=== PATIENT | male | born 1940 | race Caucasian/White ===

== ENCOUNTER 2018-10-15 13:02 | Inpatient (IN) ==
[2018-10-15] MEDS ORDERED: PANTOPRAZOLE 40 MG VIAL IV STA (14:00)
[2018-10-15 14:20] LABS: Basophils # 0.1 10*3/uL (0.0-0.2); Basophils % 0.4 % (0.0-0.8); Eosinophils # 0.2 10*3/uL (0.0-0.87); Eosinophils % 1.9 % (0.00-10.9); Hematocrit 37.2 VOL% (42.0-52.0); Hemoglobin 12.3 GM/DL (14.0-18.0); Immature Granulocytes % 0.5 %; Immature Granulocytes Absolute 0.06 #; Lymphocytes # 1.6 10*3/uL (1.4-4.0); Lymphocytes % 13.3 % (21.2-54.2); Mean Corpuscular HGB Conc 33.1 GM/DL (32-36); Mean Corpuscular Hemoglobin 32 PG (27-34); Mean Corpuscular Volume 97.4 FL (87-102); Mean Platelet Volume 9.4 FL (9.6-12.0); Monocytes # 0.9 10*3/uL (0.11-0.8); Monocytes % 7.4 % (1.7-12.7); Neutrophils # 9.2 10*3/uL (1.4-7.4); Neutrophils % 76.5 % (38.7-73.9); Platelet Count 315 T/CUMM (130-400); Red Blood Count 3.82 MC/CUMM (3.8-5.5); Red Cell Distribution Width 12.9 % (9.3-17.3)
[2018-10-15 14:28] LABS: PT Patient Result 10.4 SECS
[2018-10-15 14:46] LABS: Alanine Aminotransferase 20 U/L (16-61); Albumin 3.4 G/DL (3.4-5.0); Alkaline Phosphatase 95 U/L (45-117); Aspartate Amino Transferase 18 U/L (0-37); Blood Urea Nitrogen 17 MG/DL (7-18); Calcium 8.5 MG/DL (8.5-10.1); Glucose 118 MG/DL (74-106); Osmolality,Calculated 277.7 MOS/KG (273-304); Potassium 4.5 MMOL/L (3.5-5.1); Sodium 138 MMOL/L (136-145); Total Protein 7.4 G/DL (6.4-8.3); Troponin I < 0.015 NG/ML (0.00-0.045)
[2018-10-15] MEDS ORDERED: ACETAMINOPHEN 325 MG TABLET PO PRN (16:01)
[2018-10-15] MEDS ORDERED: ONDANSETRON 4 MG/2 ML VIAL IV PRN (16:01)
[2018-10-15 17:08] LABS: Hematocrit 36.4 VOL% (42.0-52.0); Hemoglobin 11.7 GM/DL (14.0-18.0)
[2018-10-15] MEDS: PANTOPRAZOLE INJ 80 MG in SODIUM CHLORIDE 0.9% 100 ML IV ONE ×2 (17:23→17:32)
[2018-10-15] MEDS: SODIUM CHLORIDE 0.9% 1,000 ML IV SCH (17:32)
[2018-10-15] MEDS ORDERED: INFLUENZA VIRUS VACCINE 0.5 ML SYRINGE IM ONE (17:46)
[2018-10-15] MEDS: PANTOPRAZOLE INJ 200 MG in SODIUM CHLORIDE 0.9% 250 ML IV SCH (18:24)
[2018-10-15] MEDS: TICAGRELOR 90 MG TABLET PO SCH (21:26)
[2018-10-15] MEDS: ASPIRIN EC 81 MG TABLET PO SCH (21:26)
[2018-10-15 22:39] LABS: Hematocrit 31.8 VOL% (42.0-52.0); Hemoglobin 10.4 GM/DL (14.0-18.0)
[2018-10-16] MEDS: SODIUM CHLORIDE 0.9% 1,000 ML IV SCH ×3 (01:00→18:32)
[2018-10-16 05:09] LABS: Hematocrit 29.9 VOL% (42.0-52.0); Hemoglobin 9.6 GM/DL (14.0-18.0)
[2018-10-16 05:35] LABS: Calcium 7.6 MG/DL (8.5-10.1); Osmolality,Calculated 282.1 MOS/KG (273-304); Potassium 3.9 MMOL/L (3.5-5.1)
[2018-10-16] MEDS: TICAGRELOR 90 MG TABLET PO SCH ×2 (09:32→21:06)
[2018-10-16 09:56] LABS: Hemoglobin 9.8 GM/DL (14.0-18.0)
[2018-10-16] MEDS ORDERED: SODIUM CHLORIDE 0.9% 1,000 ML IV ONE (13:37)
[2018-10-16 16:53] LABS: Hemoglobin 7.4 GM/DL (14.0-18.0)
[2018-10-16] MEDS ORDERED: SODIUM CHLORIDE 0.9% 1,000 ML IV PRN (17:01)
[2018-10-16] MEDS: PANTOPRAZOLE INJ 200 MG in SODIUM CHLORIDE 0.9% 250 ML IV SCH (17:53)
[2018-10-16] MEDS: ASPIRIN EC 81 MG TABLET PO SCH (21:06)
[2018-10-16] MEDS: METOPROLOL SUCCINATE XL 50 MG TABLET PO SCH (21:06)
[2018-10-17 04:50] LABS: Hematocrit 27.3 VOL% (42.0-52.0)
[2018-10-17 05:02] LABS: Hemoglobin 9.1 GM/DL (14.0-18.0)
[2018-10-17 05:09] LABS: Calcium 7.4 MG/DL (8.5-10.1); Osmolality,Calculated 279.3 MOS/KG (273-304); Potassium 3.9 MMOL/L (3.5-5.1)
[2018-10-17] MEDS: SODIUM CHLORIDE 0.9% 1,000 ML IV SCH ×2 (06:18→09:03)
[2018-10-17] MEDS ORDERED: MAGNESIUM SULF RIDER 2 GM in PREMIX 1 EACH IV PRN (07:21)
[2018-10-17] MEDS: TICAGRELOR 90 MG TABLET PO SCH ×2 (08:42→21:23)
[2018-10-17] MEDS: CHOLECALCIFEROL 1,000 UNIT TABLET PO SCH (08:42)
[2018-10-17 13:10] LABS: Hematocrit 25.3 VOL% (42.0-52.0); Hemoglobin 8.3 GM/DL (14.0-18.0)
[2018-10-17] MEDS ORDERED: SODIUM CHLORIDE 0.9% 1,000 ML IV PRN (13:40)
[2018-10-17] MEDS: POTASSIUM CHLORIDE INJ 10 MEQ in SODIUM CHLORIDE 0.9% 1,000 ML IV SCH (15:48)
[2018-10-17 19:24] LABS: Hematocrit 29.2 VOL% (42.0-52.0); Hemoglobin 9.4 GM/DL (14.0-18.0)
[2018-10-17] MEDS: PANTOPRAZOLE INJ 200 MG in SODIUM CHLORIDE 0.9% 250 ML IV SCH (19:36)
[2018-10-17] MEDS: METOPROLOL SUCCINATE XL 50 MG TABLET PO SCH (21:23)
[2018-10-17] MEDS: ASPIRIN EC 81 MG TABLET PO SCH (21:23)
[2018-10-17] MEDS: ATORVASTATIN 40 MG TABLET PO SCH (21:23)
[2018-10-18 05:02] LABS: Calcium 7.2 MG/DL (8.5-10.1); Potassium 3.3 MMOL/L (3.5-5.1)
[2018-10-18 06:04] LABS: Basophils # 0.1 10*3/uL (0.0-0.2); Basophils % 0.4 % (0.0-0.8); Eosinophils # 0.4 10*3/uL (0.0-0.87); Eosinophils % 3.2 % (0.00-10.9); Hematocrit 25.9 VOL% (42.0-52.0); Hemoglobin 8.7 GM/DL (14.0-18.0); Immature Granulocytes % 0.6 %; Immature Granulocytes Absolute 0.07 #; Lymphocytes # 1.7 10*3/uL (1.4-4.0); Lymphocytes % 15.4 % (21.2-54.2); Mean Corpuscular HGB Conc 33.6 GM/DL (32-36); Mean Corpuscular Hemoglobin 32 PG (27-34); Mean Corpuscular Volume 94.5 FL (87-102); Mean Platelet Volume 10.1 FL (9.6-12.0); Monocytes # 1.3 10*3/uL (0.11-0.8); Monocytes % 11.6 % (1.7-12.7); Neutrophils # 7.7 10*3/uL (1.4-7.4); Neutrophils % 68.8 % (38.7-73.9); Red Cell Distribution Width 14.2 % (9.3-17.3); White Blood Count 11.2 T/CUMM (4-12)
[2018-10-18 06:08] LABS: Red Blood Count 2.74 MC/CUMM (3.8-5.5)
[2018-10-18 06:09] LABS: Platelet Count 152 T/CUMM (130-400)
[2018-10-18] MEDS: POTASSIUM CHLORIDE INJ 10 MEQ in SODIUM CHLORIDE 0.9% 1,000 ML IV SCH (07:28)
[2018-10-18] MEDS: LOSARTAN 25 MG TABLET PO SCH (10:59)
[2018-10-18] MEDS: CHOLECALCIFEROL 1,000 UNIT TABLET PO SCH (10:59)
[2018-10-18] MEDS: TICAGRELOR 90 MG TABLET PO SCH ×2 (10:59→22:00)
[2018-10-18] MEDS: POTASSIUM CHLORIDE 20 MEQ TABLET PO SCH ×2 (10:59→13:16)
[2018-10-18] MEDS: CALCIUM (CARBONATE) 500 MG TABLET PO SCH ×3 (10:59→17:38)
[2018-10-18] MEDS ORDERED: PANTOPRAZOLE 40 MG VIAL IV SCH (21:00)
[2018-10-18] MEDS: METOPROLOL SUCCINATE XL 50 MG TABLET PO SCH (22:00)
[2018-10-18] MEDS: ATORVASTATIN 40 MG TABLET PO SCH (22:00)
[2018-10-18] MEDS: ASPIRIN EC 81 MG TABLET PO SCH (22:01)
[2018-10-18 22:19] LABS: Hematocrit 27.9 VOL% (42.0-52.0); Hemoglobin 9.2 GM/DL (14.0-18.0)
[2018-10-19 05:10] LABS: Basophils % 0.3 % (0.0-0.8); Eosinophils # 0.3 10*3/uL (0.0-0.87); Eosinophils % 2.9 % (0.00-10.9); Hematocrit 24.1 VOL% (42.0-52.0); Hemoglobin 7.8 GM/DL (14.0-18.0); Immature Granulocytes % 0.6 %; Immature Granulocytes Absolute 0.06 #; Lymphocytes # 1.1 10*3/uL (1.4-4.0); Lymphocytes % 10.1 % (21.2-54.2); Mean Corpuscular HGB Conc 32.4 GM/DL (32-36); Mean Corpuscular Hemoglobin 31 PG (27-34); Mean Corpuscular Volume 96.4 FL (87-102); Mean Platelet Volume 10.1 FL (9.6-12.0); Monocytes # 1.2 10*3/uL (0.11-0.8); Monocytes % 11.2 % (1.7-12.7); Neutrophils # 7.8 10*3/uL (1.4-7.4); Neutrophils % 74.9 % (38.7-73.9); Platelet Count 177 T/CUMM (130-400); Red Cell Distribution Width 14.1 % (9.3-17.3); White Blood Count 10.4 T/CUMM (4-12)
[2018-10-19] MEDS ORDERED: SODIUM CHLORIDE 0.9% 1,000 ML IV PRN (05:22)
[2018-10-19 05:26] LABS: Calcium 7.8 MG/DL (8.5-10.1); Osmolality,Calculated 278.3 MOS/KG (273-304); Potassium 3.7 MMOL/L (3.5-5.1)
[2018-10-19] MEDS: CHOLECALCIFEROL 1,000 UNIT TABLET PO SCH (08:58)
[2018-10-19] MEDS: PANTOPRAZOLE 40 MG VIAL IV SCH ×2 (08:58→21:47)
[2018-10-19] MEDS: TICAGRELOR 90 MG TABLET PO SCH (08:58)
[2018-10-19] MEDS: LOSARTAN 25 MG TABLET PO SCH (08:58)
[2018-10-19] MEDS ORDERED: PANTOPRAZOLE 40 MG VIAL IV SCH (09:00)
[2018-10-19] MEDS ORDERED: PANTOPRAZOLE 40 MG TABLET PO SCH (09:00)
[2018-10-19] MEDS ORDERED: CLOPIDOGREL 300 MG TABLET PO ONE (12:00)
[2018-10-19 15:02] LABS: Hematocrit 31.7 VOL% (42.0-52.0); Hemoglobin 10.5 GM/DL (14.0-18.0)
[2018-10-19 20:15] LABS: Hematocrit 31.4 VOL% (42.0-52.0); Hemoglobin 10.4 GM/DL (14.0-18.0)
[2018-10-19] MEDS: ROSUVASTATIN 20 MG TABLET PO SCH (21:47)
[2018-10-19] MEDS: ASPIRIN EC 81 MG TABLET PO SCH (21:47)
[2018-10-19] MEDS: METOPROLOL SUCCINATE XL 50 MG TABLET PO SCH (21:47)
[2018-10-20 05:18] LABS: Basophils # 0.1 10*3/uL (0.0-0.2); Basophils % 0.6 % (0.0-0.8); Eosinophils # 0.7 10*3/uL (0.0-0.87); Eosinophils % 7.7 % (0.00-10.9); Hematocrit 30.2 VOL% (42.0-52.0); Hemoglobin 9.9 GM/DL (14.0-18.0); Immature Granulocytes % 0.9 %; Immature Granulocytes Absolute 0.08 #; Lymphocytes # 1.8 10*3/uL (1.4-4.0); Lymphocytes % 20.4 % (21.2-54.2); Mean Corpuscular HGB Conc 32.8 GM/DL (32-36); Mean Corpuscular Hemoglobin 31 PG (27-34); Mean Corpuscular Volume 93.5 FL (87-102); Mean Platelet Volume 9.9 FL (9.6-12.0); Monocytes % 11.6 % (1.7-12.7); Neutrophils # 5.1 10*3/uL (1.4-7.4); Neutrophils % 58.8 % (38.7-73.9); Platelet Count 188 T/CUMM (130-400); Red Blood Count 3.23 MC/CUMM (3.8-5.5); Red Cell Distribution Width 15.7 % (9.3-17.3); White Blood Count 8.7 T/CUMM (4-12)
[2018-10-20 05:19] LABS: Calcium 7.7 MG/DL (8.5-10.1); Osmolality,Calculated 282.8 MOS/KG (273-304); Potassium 3.5 MMOL/L (3.5-5.1)
[2018-10-20] MEDS: LOSARTAN 25 MG TABLET PO SCH (09:04)
[2018-10-20] MEDS: CHOLECALCIFEROL 1,000 UNIT TABLET PO SCH (09:04)
[2018-10-20] MEDS: CLOPIDOGREL 75 MG TABLET PO SCH (09:04)
[2018-10-20] MEDS: PANTOPRAZOLE 40 MG VIAL IV SCH ×2 (09:04→20:54)
[2018-10-20 11:41] LABS: Hematocrit 32.3 VOL% (42.0-52.0); Hemoglobin 10.7 GM/DL (14.0-18.0)
[2018-10-20] MEDS ORDERED: POTASSIUM CHLORIDE 20 MEQ TABLET PO ONE (12:00)
[2018-10-20] MEDS: METOPROLOL SUCCINATE XL 50 MG TABLET PO SCH (20:31)
[2018-10-20] MEDS: ASPIRIN EC 81 MG TABLET PO SCH (20:31)
[2018-10-20] MEDS: ROSUVASTATIN 20 MG TABLET PO SCH (20:31)
[2018-10-21 05:35] LABS: Basophils # 0.1 10*3/uL (0.0-0.2); Basophils % 0.6 % (0.0-0.8); Eosinophils # 0.7 10*3/uL (0.0-0.87); Eosinophils % 8.5 % (0.00-10.9); Hematocrit 29.4 VOL% (42.0-52.0); Hemoglobin 9.6 GM/DL (14.0-18.0); Immature Granulocytes % 0.6 %; Immature Granulocytes Absolute 0.05 #; Lymphocytes # 1.7 10*3/uL (1.4-4.0); Lymphocytes % 20.1 % (21.2-54.2); Mean Corpuscular HGB Conc 32.7 GM/DL (32-36); Mean Corpuscular Hemoglobin 30 PG (27-34); Mean Corpuscular Volume 92.5 FL (87-102); Mean Platelet Volume 9.6 FL (9.6-12.0); Monocytes # 0.9 10*3/uL (0.11-0.8); Monocytes % 11.1 % (1.7-12.7); Neutrophils % 59.1 % (38.7-73.9); Platelet Count 203 T/CUMM (130-400); Red Blood Count 3.18 MC/CUMM (3.8-5.5); Red Cell Distribution Width 15.6 % (9.3-17.3); White Blood Count 8.5 T/CUMM (4-12)
[2018-10-21 05:52] LABS: Calcium 7.9 MG/DL (8.5-10.1); Potassium 3.5 MMOL/L (3.5-5.1)
[2018-10-21 08:16] VITALS: BP 128/61
[2018-10-21] MEDS: LOSARTAN 25 MG TABLET PO SCH (10:02)
[2018-10-21] MEDS: CHOLECALCIFEROL 1,000 UNIT TABLET PO SCH (10:02)
[2018-10-21] MEDS: CLOPIDOGREL 75 MG TABLET PO SCH (10:02)
[2018-10-21] MEDS: PANTOPRAZOLE 40 MG VIAL IV SCH (12:51)
== END 2018-10-21 11:57 | disposition home or self-care (01) | DRG 813 ==
LOC: N.ED 13:02 → N.EDINP 16:01 → SUATTDRO 16:01 → N.CC 17:02 → N.2E 10-17 17:42
PROVIDERS: ADMIT Internal Medicine; ATTEND Internal Medicine

== ENCOUNTER 2019-07-11 13:41 | Observation (INO) ==
[2019-07-11] MEDS ORDERED: ASPIRIN 325 MG TABLET PO STA (14:04)
[2019-07-11] MEDS ORDERED: NITROGLYCERIN 2% OINT 1 INCH/GM PACK TOP STA (14:04)
[2019-07-11] MEDS ORDERED: ALUM/MAG/SIMETH/LIDO VISC 1:1 30 ML BOTTLE PO STA (14:04)
[2019-07-11 14:50] LABS: Basophils # 0.1 10*3/uL (0.0-0.2); Basophils % 0.5 % (0.0-0.8); Eosinophils # 0.2 10*3/uL (0.0-0.87); Eosinophils % 2.1 % (0.00-10.9); Hematocrit 43.3 VOL% (42.0-52.0); Hemoglobin 14.3 GM/DL (14.0-18.0); Immature Granulocytes % 0.5 %; Immature Granulocytes Absolute 0.05 #; Lymphocytes # 1.7 10*3/uL (1.4-4.0); Mean Platelet Volume 9.4 FL (9.6-12.0); Monocytes % 6.3 % (1.7-12.7); Neutrophils % 73.6 % (38.7-73.9); Platelet Count 281 T/CUMM (130-400); Red Blood Count 4.42 MC/CUMM (3.8-5.5); Red Cell Distribution Width 12.8 % (9.3-17.3); White Blood Count 10.1 T/CUMM (4-12)
[2019-07-11 15:05] LABS: PT Patient Result 10.4 SECS (9.6-12.2); Partial Thromboplastin Time 24.4 SECS (20.8-36.0)
[2019-07-11 15:12] LABS: Albumin 3.5 G/DL (3.4-5.0); Bilirubin,Total 1.7 MG/DL (0.2-1.0); Calcium 8.8 MG/DL (8.5-10.1); Osmolality,Calculated 276.7 MOS/KG (273-304); Total Protein 7.4 G/DL (6.4-8.3)
[2019-07-11 15:35] LABS: Apearance,Urine Slightly Hazy (Clear); Bilirubin,Urine Negative (Negative); Blood, Urine Negative (Negative); Glucose,Urine (UA) Negative (Negative); Ketones,Urine Negative (Negative); Mucus,Urine Occasional /LPF (Occasional); Nitrite,Urine Negative (Negative); Protein,Urine Negative; RBC,Urine 2 /HPF (0-4); Urine Color Yellow (Yellow); Urine Specific Gravity 1.018 (1.001-1.035); Urine Urobilinogen < 2.0 EU/DL (0.2-1.0); WBC,Urine 1 /HPF (0-6)
[2019-07-11 15:49] LABS: Barbiturates Screen,Urine Negative (Negative); Benzodiazepines Screen,Urine Negative (Negative); Cannabinoid Screen,Urine Negative (Negative); Opiate Screen,Urine Negative (Negative); Phencyclidine Screen,Urine Negative (Negative)
[2019-07-11] MEDS ORDERED: ACETAMINOPHEN 325 MG TABLET PO PRN (17:06)
[2019-07-11] MEDS ORDERED: ONDANSETRON 4 MG/2 ML VIAL IV PRN (17:06)
[2019-07-11] MEDS ORDERED: NITROGLYCERIN SL 0.4 MG TABLET SL PRN (17:41)
[2019-07-11 18:38] LABS: Troponin I < 0.015 NG/ML (0.00-0.045)
[2019-07-11] MEDS: LOSARTAN 25 MG TABLET PO SCH (21:27)
[2019-07-11] MEDS: OMEGA 3 ACID ETHYL ESTERS 1 GM CAPSULE PO SCH (21:27)
[2019-07-11] MEDS: METOPROLOL SUCCINATE XL 50 MG TABLET PO SCH (21:27)
[2019-07-11] MEDS: ROSUVASTATIN 20 MG TABLET PO SCH (21:27)
[2019-07-11] MEDS: ASPIRIN EC 81 MG TABLET PO SCH (21:27)
[2019-07-11] MEDS: ENOXAPARIN 40 MG/0.4 ML SYRINGE SUBCUT SCH (21:27)
[2019-07-12 05:50] LABS: Basophils % 0.4 % (0.0-0.8); Eosinophils # 0.4 10*3/uL (0.0-0.87); Eosinophils % 3.8 % (0.00-10.9); Hematocrit 38.4 VOL% (42.0-52.0); Hemoglobin 12.8 GM/DL (14.0-18.0); Immature Granulocytes % 0.7 %; Immature Granulocytes Absolute 0.07 #; Lymphocytes # 1.8 10*3/uL (1.4-4.0); Lymphocytes % 18.5 % (21.2-54.2); Mean Corpuscular HGB Conc 33.3 GM/DL (32-36); Mean Corpuscular Volume 97.2 FL (87-102); Mean Platelet Volume 9.4 FL (9.6-12.0); Monocytes % 10.5 % (1.7-12.7); Neutrophils % 66.1 % (38.7-73.9); Platelet Count 243 T/CUMM (130-400); Red Blood Count 3.95 MC/CUMM (3.8-5.5); Red Cell Distribution Width 13.1 % (9.3-17.3); White Blood Count 9.5 T/CUMM (4-12)
[2019-07-12 06:25] LABS: Calcium 8.6 MG/DL (8.5-10.1); Osmolality,Calculated 281.1 MOS/KG (273-304); Risk Ratio 1.85; Thyroid Stimulating Hormone 1.67 uIU/ml (0.358-3.74); VLDL CHOLESTEROL 17.6 MG/DL
[2019-07-12] MEDS: ARGININE HCL 1000 MG PO SCH (10:36)
[2019-07-12] MEDS: [UNRECOGNIZED DRUG - OTHER] PO SCH (10:36)
[2019-07-12] MEDS: CINNAMON BARK 1000 MG PO SCH (10:37)
[2019-07-12] MEDS: OMEGA 3 ACID ETHYL ESTERS 1 GM CAPSULE PO SCH ×2 (10:37→22:08)
[2019-07-12] MEDS: Flaxseed Oil 1,000 MG PO SCH (10:37)
[2019-07-12] MEDS: MULTIVITAMIN (PRENATAL) TABLET PO SCH (10:37)
[2019-07-12] MEDS: NIACIN ER 500 MG TABLET PO SCH (10:37)
[2019-07-12] MEDS: COENZYME Q10 100 MG CAPSULE PO SCH (10:37)
[2019-07-12] MEDS: MULTIVITAMIN (BEROCCA) TABLET PO SCH (10:37)
[2019-07-12] MEDS: PANTOPRAZOLE 40 MG TABLET PO SCH (10:38)
[2019-07-12] MEDS: CHOLECALCIFEROL 1,000 UNIT TABLET PO SCH (10:38)
[2019-07-12] MEDS: CLOPIDOGREL 75 MG TABLET PO SCH (12:28)
[2019-07-12] MEDS: ROSUVASTATIN 20 MG TABLET PO SCH (22:07)
[2019-07-12] MEDS: ENOXAPARIN 40 MG/0.4 ML SYRINGE SUBCUT SCH (22:07)
[2019-07-12] MEDS: ASPIRIN EC 81 MG TABLET PO SCH (22:08)
[2019-07-12] MEDS: LOSARTAN 25 MG TABLET PO SCH (22:08)
[2019-07-12] MEDS: METOPROLOL SUCCINATE XL 50 MG TABLET PO SCH (22:08)
[2019-07-13 05:14] LABS: Basophils # 0.1 10*3/uL (0.0-0.2); Basophils % 0.5 % (0.0-0.8); Eosinophils # 0.4 10*3/uL (0.0-0.87); Eosinophils % 4.6 % (0.00-10.9); Hematocrit 39.1 VOL% (42.0-52.0); Hemoglobin 12.8 GM/DL (14.0-18.0); Immature Granulocytes % 0.3 %; Immature Granulocytes Absolute 0.03 #; Lymphocytes # 2.1 10*3/uL (1.4-4.0); Lymphocytes % 22.9 % (21.2-54.2); Mean Corpuscular HGB Conc 32.7 GM/DL (32-36); Mean Corpuscular Volume 97.5 FL (87-102); Mean Platelet Volume 9.3 FL (9.6-12.0); Monocytes % 10.5 % (1.7-12.7); Neutrophils % 61.2 % (38.7-73.9); Platelet Count 235 T/CUMM (130-400); Red Blood Count 4.01 MC/CUMM (3.8-5.5); Red Cell Distribution Width 12.8 % (9.3-17.3); White Blood Count 9.3 T/CUMM (4-12)
[2019-07-13 05:42] LABS: Calcium 8.3 MG/DL (8.5-10.1); Osmolality,Calculated 279.4 MOS/KG (273-304)
[2019-07-13 07:52] VITALS: BP 116/65
[2019-07-13] MEDS: OMEGA 3 ACID ETHYL ESTERS 1 GM CAPSULE PO SCH (08:09)
[2019-07-13] MEDS: CLOPIDOGREL 75 MG TABLET PO SCH (08:09)
[2019-07-13] MEDS: PANTOPRAZOLE 40 MG TABLET PO SCH (08:09)
[2019-07-13] MEDS: MULTIVITAMIN (PRENATAL) TABLET PO SCH (08:09)
[2019-07-13] MEDS: NIACIN ER 500 MG TABLET PO SCH (08:09)
[2019-07-13] MEDS: MULTIVITAMIN (BEROCCA) TABLET PO SCH (08:10)
[2019-07-13] MEDS: CINNAMON BARK 1000 MG PO SCH (08:10)
[2019-07-13] MEDS: CHOLECALCIFEROL 1,000 UNIT TABLET PO SCH (08:10)
[2019-07-13] MEDS: COENZYME Q10 100 MG CAPSULE PO SCH (08:10)
[2019-07-13] MEDS: [UNRECOGNIZED DRUG - OTHER] PO SCH (08:10)
[2019-07-13] MEDS: ARGININE HCL 1000 MG PO SCH (08:10)
[2019-07-13] MEDS: Flaxseed Oil 1,000 MG PO SCH (08:11)
== END 2019-07-13 12:23 | disposition home or self-care (01) ==
LOC: N.EDINP 13:41 → N.ED 13:41 → N.5E 16:49
PROVIDERS: ADMIT Internal Medicine; ATTEND Internal Medicine